=== PATIENT | male | born 2000 | race Caucasian/White ===

== ENCOUNTER 2023-06-07 09:32 | Emergency (ER) | payer BC ==
[~2023-06-07] VITALS: Ht 180.3 cm; Wt 122.0 kg
[2023-06-07 09:49] VITALS: O2SAT 100
[2023-06-07] MEDS ORDERED: ACETAMINOPHEN 325MG TABLET PO STA (10:06)
[2023-06-07] MEDS ORDERED: TOPUD MT (12:05)
[2023-06-07 12:45] VITALS: BP 145/88; PULSE 88; RESP 18; TEMP 98.7
== END 2023-06-08 18:20 | disposition home or self-care (01) ==
LOC: ER 09:54
DX: R51.9 Headache, unspecified (principal); R42 Dizziness and giddiness
CPT/HCPCS: 99284